=== PATIENT | female | born 1970 | race Caucasian/White ===

== ENCOUNTER 2023-07-03 11:48 | Emergency (ER) | payer OTHER ==
[~2023-07-03] VITALS: Ht 167.6 cm; Wt 90.0 kg
[2023-07-03 11:54] VITALS: TEMP 98; O2SAT 99
[2023-07-03 15:45] VITALS: BP 149/93; PULSE 98; RESP 18
[2023-07-03] MEDS ORDERED: IBUPROFEN 600MG TABLET PO ONE (15:45)
[2023-07-03] MEDS ORDERED: BACITRACIN ZINC OINT UDPKT TOP ONE (15:45)
[2023-07-03] MEDS ORDERED: NAPR500T7 MT (17:33)
== END 2023-07-03 17:50 | disposition home or self-care (01) ==
LOC: ER 12:24
DX: R07.89 Other chest pain (principal); M79.10 Myalgia, unspecified site; V03.99XA Pedestrian with other conveyance injured in collision with car, pick-up truck or van, unspecified whether traffic or nontraffic accident, initial encounter; Y93.89 Activity, other specified; Y92.89 Other specified places as the place of occurrence of the external cause; Y99.8 Other external cause status
CPT/HCPCS: 71045; 71046; 73090; 73130; 93005; 99284